=== PATIENT | female | born 1995 | race Caucasian/White ===

== ENCOUNTER 2023-07-30 12:28 | Emergency (ER) | payer OTHER, SELFPAY ==
[2023-07-30 12:33] VITALS: BP 135/98; BMI 25.8
--- NOTE | 2023-07-30 14:44 | ED.GENMED ---
History of Present Illness
General
Chief Complaint: Extremity Pain (non-traumatic)
Source: patient
Time Seen by Provider: 07/30/23 13:45
Travel History
Have you had any contact with someone who has COVID-19?: No
Do you have any symptoms of coronavirus? Fever > 100 degrees, chills, cough, shortness of breath, sore throat, loss of taste or smell, muscle aches, or headache?: No
History of Present Illness
History of Present Illness:
27-year-old female with no significant past medical history presenting to the emergency department for evaluation and concerned she may have a DVT in her left lower extremity. Patient notes that she has been experiencing intermittent pain and
discomfort that is mainly centered around the left gastrocnemius region but has waxed and waned over the last month or so. Patient notes that she has a history of varicose veins and yesterday she noticed one of the veins got a little bit more
erythematous, hard and tender and while doing a Google search she thought that it could be a phlebitis or potentially a DVT. Patient states that today the redness had gone down but she still wanted to be safe to make sure she did not have a DVT so
came to the ER for further evaluation.
Past History
Past History
ED Past Medical History: None
ED Past Surgical History: None
Social History
Tobacco: Non-smoker
Alcohol: None
Drug: None
Personal:
Living: with family
Employment: Employed
Review of Systems
Review of Systems
All Other Systems: ROS reviewed and negative except as documented in HPI and ROS
Phy Exam
Physical Exam
Physical Exam:
GENERAL: Alert , in no apparent distress
EYE: conjunctiva clear
Head: Normocephalic atraumatic
NECK: Supple,
ENT: mmm.
LUNGS: no acute respiratory distress
NEUROLOGICAL: Alert and oriented
SKIN: Warm and dry, skin intact.
MUSCULOSKELETAL: well perfused. No obvious edema/erythema. Easily palpable pulses. Sensation grossly intact to light touch. Moves extremities without
PSYCH: Normal and appropriate interaction.
Scores
Heart Failure Risk
Heart Failure Risk Score: Not Applicable
Heart Score for Chest Pain Patients
STEMI patient?: Not applicable
Withdrawal Assessment of Alcohol
Withdrawal Assessment Completed?: Not applicable
Course
Orders/Labs/Results
Orders:
Orders
07/30/23 12:37
US Legs, Left [US Periph Venous LOWER Ext LT] Urgent
Comment:
Reason For Exam: poss. dvt
Vital Signs
Initial and Last Documented VS:
Initial Vital Signs
Temp Pulse Resp BP Pulse Ox
98.5 F 96 16 135/98 100
07/30/23 12:33 07/30/23 12:33 07/30/23 12:33 07/30/23 12:33 07/30/23 12:33
Last Documented Vital Signs
Temp Pulse Resp BP Pulse Ox
98.5 F 96 16 135/98 100
07/30/23 12:33 07/30/23 12:33 07/30/23 12:33 07/30/23 12:33 07/30/23 12:33
MDM/Problems Addressed
Differential Diagnosis Includes:
Varicose vein, muscle strain, DVT
MDM/Problems Addressed:
27-year-old female presented emergency department for evaluation with concern for possible DVT to her left lower. Based off patient's description of her symptoms last night possibility for phlebitis as well. Ultrasound to rule out DVT had been
ordered in triage. Reassessment following
*Radiology
Radiology exam reviewed: preliminary read by ED provider (No evidence for DVT or superficial phlebitis)
*Pulse Oximetry
Patient hypoxic: no
*Critical Care Note
Total Time (30-74mins, 75-104mins- exclusive of procedures): Not Applicable
Comment
Comment:
Patient stable for discharge home. I provided patient with information for vascular surgery at her request. Motrin/Tylenol as needed for pain. Aware of return precautions but otherwise stable for discharge home
ED Attending Note
-
Portions of this chart may have been created with voice recognition software.� Occasional wrong word or��sound alike� substitutions may have occurred due to the inherent limitations of voice recognition software.
Discharge Plan
Departure
Patient Disposition: Home (Routine Discharge)
Date of Disposition: 07/30/23
Time of Disposition: 14:44
Patient with high blood pressure during this ER visit?: Yes
Discharge Problem:
Pain in left lower leg
Instructions: Muscle Spasms (DC)
Prescriptions:
No Action
Vitamin
1 tab PO DAILY
ibuprofen 600 mg Tablet
600 mg PO Q6HPRN PRN (Reason: moderate pain/cramps) Qty: 90 0RF
Referrals:
NONE,* [Family Provider] -
Juan Pablo Pittman MD [Active] - (Vascular Surgery if needed)
Interventions
Interventions:
*Risk Screen - Suicide Last Done: 07/30/23 12:33
*General Assessment Last Done: 07/30/23 12:55
*Neglect/Abuse Screening Last Done: 07/30/23 12:33
*ED COVID-19 Vaccine History Last Done: 07/30/23 12:33
ED-Skin Assessment Last Done: 07/30/23 12:55
ED-Musculoskeletal Assessment Last Done: 07/30/23 12:55
== END 2023-07-30 15:02 | disposition home or self-care (01) ==
LOC: EMR 12:28
PROVIDERS: EMERGENCY PHYSICIAN Emergency Medicine
DX: M79.662 Pain in left lower leg (principal); R03.0 Elevated blood-pressure reading, without diagnosis of hypertension; I83.90 Asymptomatic varicose veins of unspecified lower extremity
CPT/HCPCS: 99284; 93971